=== PATIENT | female | born 1965 | race Caucasian/White ===

== ENCOUNTER 2023-05-27 09:26 | Outpatient (CLI) | payer BC | END 2023-05-27 09:27 | disposition home or self-care (01) | LOC: CSHMAMMO 09:26 | PROVIDERS: ATTEND Family Medicine | DX: Z12.31 Encounter for screening mammogram for malignant neoplasm of breast (principal) | CPT/HCPCS: 77063; 77067 ==

== ENCOUNTER 2024-01-13 10:30 | Outpatient (CLI) | payer BC | END 2024-01-13 10:31 | disposition home or self-care (01) | LOC: CSHMAMMO 10:30 | PROVIDERS: ATTEND Family Medicine | DX: M85.851 Other specified disorders of bone density and structure, right thigh (principal) | CPT/HCPCS: 77080 ==

== ENCOUNTER 2024-11-19 09:35 | Outpatient (CLI) | payer OTHER | END 2024-11-19 09:36 | disposition home or self-care (01) | LOC: CSHCT 09:35 | PROVIDERS: ATTEND Internal Medicine Cardiovascular Disease | DX: Z82.49 Family history of ischemic heart disease and other diseases of the circulatory system (principal); I25.10 Atherosclerotic heart disease of native coronary artery without angina pectoris; I25.84 Coronary atherosclerosis due to calcified coronary lesion; I70.0 Atherosclerosis of aorta | CPT/HCPCS: 75571 ==

== ENCOUNTER 2025-04-09 07:20 | Day surgery (SDC) | payer BC ==
[2025-04-01 10:33] VITALS: BMI 24.3
[2025-04-09] MEDS ORDERED: AFRIN NASAL MIST 15 ML BOT ONE (08:17)
[2025-04-09] MEDS ORDERED: PROPOFOL 20 ML ONE (08:58)
[2025-04-09] MEDS ORDERED: Lidocaine 1% PF 5 ML VIAL ONE (08:58)
[2025-04-09] MEDS ORDERED: Ondansetron PF 4 MG/2 ML Vial ONE ×2 (08:58→10:47)
[2025-04-09] MEDS ORDERED: Rocuronium Bromide 10 MG/ML (10ML VIAL) ONE ×2 (08:58→08:59)
[2025-04-09] MEDS ORDERED: SUGAMMADEX SODIUM 200 MG/2 ML VIAL ONE (08:58)
[2025-04-09] MEDS ORDERED: CEFAZOLIN 1 GM VIAL ONE (09:45)
[2025-04-09] MEDS ORDERED: Lidocaine 1% w/Epinephrine 1:100K 20 ML VIAL ONE (10:09)
[2025-04-09] MEDS ORDERED: HYDROcodone/Acetaminophen 5/325 mg Tablet ONE (11:30)
== END 2025-04-09 12:15 | disposition home or self-care (01) ==
LOC: CSHSDC 07:20
PROVIDERS: ATTEND Otolaryngology Otolaryngic Allergy
PROC: 09BM0ZZ Excision of Nasal Septum, Open Approach (ICD-10-PCS; principal; 2025-04-09)
DX: J34.2 Deviated nasal septum (principal); J30.9 Allergic rhinitis, unspecified; J32.9 Chronic sinusitis, unspecified; I10 Essential (primary) hypertension; M95.0 Acquired deformity of nose; J34.3 Hypertrophy of nasal turbinates; G47.33 Obstructive sleep apnea (adult) (pediatric)
CPT/HCPCS: J0690; J1100; J2405; J2704; J3010